=== PATIENT | female | born 1990 | race African-American/Black ===

== ENCOUNTER 2019-09-28 12:05 | Emergency (ER) | payer MEDICAID, SELFPAY ==
[2019-09-28 12:07] VITALS: BP 150/92; PULSE 111; RESP 20; TEMP 36.7; O2SAT 100; BMI 18.3
--- NOTE | 2019-09-28 12:22 | EKG12_ITS ---
Test Reason : SOB Blood Pressure : / mmHG Vent. Rate : 088 BPM Atrial Rate : 088 BPM P-R Int : 160 ms QRS Dur : 080 ms QT Int : 330 ms P-R-T Axes : 077 090 047 degrees QTc Int : 399 ms Normal sinus rhythm Normal ECG Confirmed by ALBERTO FOWLER ([id number]), video effects editor FRANCIS MAYO ([id number]) on 10/02/2019 2:00:02 PM Referred By: STEPHANIE Confirmed By:ALBERTO FOWLER
--- NOTE | 2019-09-28 12:24 | ED.VIS.GEN ---
History of Present Illness Chief Complaint: General Illness Informant: Patient Narrative: Patient is a 29-year-old previously healthy female who presents to the emerge department for diarrhea, fatigue and chest tightness. Her symptoms started earlier today. She states she has had 4 episodes of runny bowel movement. No associated nausea or vomiting. She does not know of any sick contacts. Has not been on any antibiotics recently. She denies any urinary symptoms. No cough, cold, congestion. Denies any sore throat or ear pain. She rates the chest tightness as mild. No real chest pain. No known aggravating or relieving factors. No radiation of the pain. No associated shortness of breath. No known exposures to anybody with coronavirus. She denies associated abdominal pain with her diarrhea. No leg swelling or calf pain. No history of DVT/PE. She denies any recent traveling. She has not had any fevers or chills. She states that she feels like she is dehydrated. Denies smoking, drinking or drug use. Only medication she takes is control. Past Medical History - Allergies and Home Meds Allergies/Adverse Reactions: Allergies No Known Allergies Allergy (Verified 09/28/19 12:09) Primary Care Physician: Poornima Gill DO [NON-STAFF] - 2 Days Care Physician,No Primary [Primary Care Provider] - Prior records reviewed: Yes Past Medical History: None Surgical History: no surgical history Smoking Status: Never smoker Alcohol: None Drugs: None Review of Systems All systems negative except as indicated General: Reports: - - Fatigue. Denies: Chills, Fever, Sweats Eyes: Denies: Visual changes - bilaterally, Diplopia ENT: Denies: Rhinorrhea, Sore throat Cardiovascular: Reports: Chest pain - Chest tightness. Denies: Palpitations Respiratory: Denies: Dyspnea, Cough, Dyspnea on exertion Gastrointestinal: Reports: Diarrhea. Denies: Abdominal pain, Nausea, Vomiting, Melena, Hematochezia Genitourinary: Denies: Dysuria, Hematuria, Frequency Musculoskeletal: Denies: Back pain, Extremity Pain Skin: Denies: Rash, Wounds Neurological: Denies: Headache, Weakness, Numbness Physical Exam Vital Signs/Narrative: Vital Signs Temp Pulse Resp BP Pulse Ox 09/28/19 12:07 98.1 F 111 H 20 H 150/92 H 100 Inital Vital Signs reviewed: Yes General: Well nourished, Well developed, No Acute Distress Head: Normocephalic, Atraumatic Eyes: Perrl, EOMI ENT: Moist mucous membranes, No rhinorrhea Neck: Supple, Nontender Cardiovascular: Regular rate, Regular rhythm, No murmurs, Tachycardia Respiratory: No distress, CTA bilaterally, Chest nontender Abdomen: Soft, Nontender, Nondistended, Normal bowel sounds Rectal: Deferred Back: Nontender, Normal Inspection Extremities: Nontender, No edema Skin: Normal color, No rash Neurological: Alert, Oriented x3, Cranial nerves II-XII grossly intact, Normal Strength, Normal Sensation Psychological: Normal affect, Normal Mood Diagnostic/Tx/Re-eval Chest X-Ray - ED: 1 View - Chest x-ray did not show any area of consolidation. No pneumothorax. No pleural effusions present. No widened mediastinum. No acute process noted. - Rhythm Strip Rhythm Strip: Sinus Rhythm - Rate of 88 bpm in sinus rhythm. Normal intervals. Normal axis. No ST elevations or depressions appreciated. No T wave abnormalities. No prior EKG for comparison. - Medical Decision Making Patient presents to the emerge department for diarrhea, fatigue and chest tightness. Upon arrival to the emerge department she is mildly tachycardic but otherwise normal vital signs. Satting well on room air. Given her reason for dehydration will start IV fluids. Will check basic lab work and coronavirus test. Otherwise physical exam is benign. Patient's lab work-up did not reveal any significant acute abnormality. Urinalysis was negative for infection. Urine was negative as well. EKG, chest x-ray negative for acute abnormality. Troponin d-dimer test within normal limits. She did not have any episodes of diarrhea throughout ED stay. On repeat exam prior to discharge patient still does not have any abdominal pain. Heart rate did come down to the low 90s with the IV fluids. She does feel comfortable going home at this time. She does not have a PCP and will be given a referral for 1. Warning signs and symptoms for which to return to the emergency department were reviewed with her including developing any abdominal pain or fever/chills. The coronavirus test is currently pending and she is to self isolate until this results. She understands and is agreeable with this plan. ED Disposition - Plan for ED Patient: Disposition: Home or Assisted Living Diagnosis: Diarrhea Instructions: ED Diet for Vomiting or Diarrhea Adult Referrals: Care Physician,[place] Primary [Primary Care Provider] - Fast,Poornima, DO [NON-STAFF] - 2 Days
--- NOTE | 2019-09-28 12:25 | NURSING ---
NO OLD EKGS
[2019-09-28] MEDS: 0.9% Normal Saline 1,000 ML 999 ML IV (12:50)
[2019-09-28 13:03] LABS: Bacteria 0 SEEN /hpf (None Seen); Mucous, Urine 0 SEEN /hpf (<or=2+); Red Blood Cells-Urine 0 SEEN /hpf (0-5)
[2019-09-28 13:11] LABS: Absolute Lymphocyte Count 2.33 X10^3/uL (0.83-4.51); Absolute Neutrophil Count 4.5 X10^3/uL (2.0-7.7); Basophil# 0.03 X10^3/uL; Basophil% 0.4 % (0-1); Eosinophil# 0.09 X10^3/uL; Eosinophils% 1.2 % (0-5); Hematocrit 38.3 % (37-47); Lymphocyte # 2.33 X10^3/ul (4.0); Lymphocyte % 31.4 % (19-41); Mean Corp Hgb Conc 31.3 g/dL (32-36); Mean Corpuscular Hgb 27.4 pg (27.0-32.0); Mean Corpuscular Volume 87.4 fL (81-99); Mean Platelet Vol. 9.7 fl (6.2-12.0); Monocyte# 0.49 X10^3/uL; Monocyte% 6.6 % (0-10); NRBC Flagged by Analyzer 0 % (0-5); Neutrophil # 4.46 X10^3/uL (2.7-7.7); Neutrophil % 60.1 % (47-70); Platelet Count 356 K/mm3 (150-450); RBC Distribution Width CV 12.3 % (11.6-14.6); RBC Distribution Width SD 39.5 fl (35.1-43.9); Red Blood Count 4.38 M/mm3 (4.2-5.4); White Blood Count 7.4 K/mm3 (4.4-11.0)
--- NOTE | 2019-09-28 13:15 | RAD_ITS ---
STUDY: X-RAY CHEST REASON FOR EXAM: Female, 29 years old. cough, fatigue, chest tightness, diarrhea TECHNIQUE: Single AP portable view of the chest. COMPARISON: None. FINDINGS: EKG leads overlie the chest The lungs are clear and expanded. There is no demonstrated pleural abnormality. Normal size heart. Normal mediastinum and altaf. Normal visualized pulmonary arteries. Normal visualized aortic arch and descending thoracic aorta. Normal visualized thoracic spine. Normal visualized ribs, clavicles, and shoulders. There is no demonstrated abnormality of the visualized soft tissue structures of the upper abdomen. RAD/Chest 1 View (Portable) IMPRESSION: Normal x-ray examination of the chest. Electronically Signed: Wilner Hope MD at 13:38 EDT , Service support ,
[2019-09-28 13:16] LABS: Color, Urine Straw (Yellow); Glucose, Dipstick Normal (Normal); Ketone-Dipstick Negative (Negative); Leukocyte Esterase-Dipstick Negative /ul (Negative); Nitrite-Dipstick Negative (Negative); Occult Blood-Urine Negative /ul (Negative); Protein-Dipstick Negative (Negative); Urine Bilirubin Dipstick Negative (Negative); Urine Clarity Clear (Clear); Urine Urobilinogen Normal (Normal)
[2019-09-28 13:21] LABS: Internal QC Validated? YES +Cl - CLEAR BKGD; Pregnancy, Urine Negative Negative
[2019-09-28 13:26] LABS: Squamous Epithelial Cells - UA 0-5 SEEN /hpf (5-10); White Blood Cells 0-5 SEEN /hpf (0-5)
[2019-09-28 13:29] LABS: Anion Gap 6 (5-15); BUN 7 mg/dL (7-18); Calcium,Total 8.8 mg/dL (8.5-10.1); Chloride 106 mmol/L (98-107); Creatinine, Serum 0.78 mg/dL (0.55-1.02); EST Glomerular Filtration Rate 93 mL/min (>60); Est Glom Filt Rate - Afr Amer 113 mL/min (>60); Estimated Creatinine Clearance 87.47 ml/min; Glucose 75 mg/dL (74-106); Potassium 3.6 mmol/L (3.5-5.1); Sodium Level 139 mmol/L (136-145)
[2019-09-28 13:39] LABS: D-Dimer Quantitative (DVT/PE) <= 0.27 FEU/ug/m (0.27-0.49)
[2019-09-28 14:36] VITALS: BP 154/90; PULSE 88; RESP 16; O2SAT 97
== END 2019-09-28 14:38 | disposition home or self-care (01) ==
PROVIDERS: Emergency Provider Emergency Medicine
DX: R19.7 Diarrhea, unspecified (principal); E86.0 Dehydration; R07.89 Other chest pain; R53.83 Other fatigue; R00.0 Tachycardia, unspecified; Z79.3 Long term (current) use of hormonal contraceptives
CPT/HCPCS: 71045; 80048; 81001; 81025; 84484; 85025; 85379; 87635; 93005; 96360; 96361; 99284; G2023; J7030; A4216; U0003

== ENCOUNTER 2020-02-02 12:28 | Emergency (ER) | payer MEDICAID, SELFPAY ==
[2020-02-02 12:33] VITALS: BP 155/92; PULSE 118; RESP 17; TEMP 37.3; O2SAT 100; BMI 18.6
[2020-02-02 14:19] VITALS: BP 139/93; PULSE 108; RESP 16; O2SAT 100
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
== END 2020-02-02 16:05 | disposition home or self-care (01) ==
PROVIDERS: Emergency Provider Emergency Medicine; PCP Family Medicine
DX: S00.03XA Contusion of scalp, initial encounter (principal); V89.2XXA Person injured in unspecified motor-vehicle accident, traffic, initial encounter; Y93.9 Activity, unspecified; Y92.9 Unspecified place or not applicable; Y99.9 Unspecified external cause status
CPT/HCPCS: 70450; 99282

== ENCOUNTER 2023-09-01 07:23 | Emergency (ER) | payer MEDICAID, SELFPAY ==
[2023-09-01 07:24] VITALS: BP 162/109; PULSE 110; RESP 18; TEMP 36.4; O2SAT 98; BMI 18.6
--- NOTE | 2023-09-01 07:37 | EDS_ITS ---
HPI History of Present Illness Chief Complaint: Lower Extremity Injury Detail of Chief Complaint: Left ankle injury Informant: patient Onset/Context/Timing Onset: Today Narrative Narrative: Patient presents secondary to left ankle pain. She was walking down some steps this morning when she rolled her left ankle. She states she heard some popping. She was able to walk with a limp after her injury. When she went to work she was noticing sharp pain in her ankle and came to have it evaluated. No other injury. She has not yet taken anything for pain. PFSH PFSH Medical History no medical history no medical history Home Medications ?Medication ?Instructions ?Recorded ?Last Taken ?Type desogestrel 0.15 mg-ethinyl 1 ea PO DAILY 09/28/19 Unknown History estradiol 0.03 mg tablet Allergy/AdvReac Type Severity Reaction Status Date / Time No Known Allergies Allergy Verified 09/01/23 07:24 Social History Smoking Status: Never smoker ROS ROS ED Constitutional Constitutional ED: Denies chills or fever(s) Cardiovascular Cardiovascular: Denies chest pain Respiratory/Chest Respiratory/Chest: Denies dyspnea Gastrointestinal Gastrointestinal: Denies abdominal pain, nausea or vomiting Musculoskeletal Musculoskeletal: Denies back pain or extremity pain Integumentary Denies Abrasions or rash Neurologic Neurologic: Denies paresthesias or weakness Allergic/Immunologic Allergic/Immunologic ED: Denies lip swelling or urticaria EXAM Physical Exam Const Vital Signs: 09/01/23 07:24 Temperature 97.6 F L Temperature Source Temporal Pulse Rate 110 H Respiratory Rate 18 Blood Pressure 162/109 H Blood Pressure Mean 126 Pulse Ox 98 Oxygen Delivery Method Room Air Positive well nourished and well developed General Appearance ED: well developed HEENT Reports moist mucous membranes Chest Wall inspection of chest normal and palpation of chest normal Resp normal respiratory effort and clear to auscultation bilaterally Cardio regular rate and regular rhythm GI non-tender Extremity Extremity Narrative: Mild tender palpation on the lateral malleolus of the left ankle. No significant edema. No erythema or ecchymosis. No tenderness over the knee or proximal fibula. Good distal pulses. Full range of motion. Neuro oriented x3, moves all extremities and no sensory deficits noted Motor Exam: strength 5/5 throughout Psych mental status grossly normal Skin Lesions: no lesions Rashes: no rashes MDM MDM MDM Narrative Medical decision making narrative: Ice pack applied to the left ankle. Patient given ibuprofen for pain. Left ankle x-ray obtained to evaluate for potential fracture. Differential diagnosis includes sprain, strain, contusion. Treatment and Re-Evaluation Narrative: Left ankle x-ray per my interpretation is no evidence of fracture. Test results discussed with the patient. She be placed in an air stirrup splint may weight- bear as tolerated. She will be referred to orthopedics for follow-up if not improving. I will write her off work today and we discussed using Tylenol, ibuprofen, ice, and elevation. Discharge Plan Triage Chief Complaint: Lower Extremity Injury ED Provider: Mandy Bob Dx/Rx/DC Orders Clinical Impression: Left ankle sprain Instructions: ED Ankle Sprain (Adult) Prescriptions: No Action desogestrel-ethinyl estradiol 1 EACH tablet 1 ea PO DAILY Stand Alone Forms: ED Work / School Excuse Primary Care Provider: Meghana Amador Referrals: Domenico Giraldo MD [Med Staff - Active Staff] - 10-14 Days if not better José Cobian MD [Non-Staff] - Print Language: Portuguese Disposition Disposition: Home, Self Care
--- NOTE | 2023-09-01 07:40 | RAD_ITS ---
STUDY: X-RAY - LEFT ANKLE REASON FOR EXAM: Female, 33 years old. Lateral ankle pain following injury. TECHNIQUE: 3 view(s) of the ankle. COMPARISON: None. FINDINGS: Normal visualized distal tibia and fibula. Normal medial and lateral malleoli. Normal tibiotalar articulation and ankle mortise. Normal visualized talus and calcaneus. The visualized subtalar, talonavicular, calcaneocuboid and tarsal articulations are normal. The soft tissue structures are unremarkable. RAD/Ankle min 3 Views IMPRESSION: Normal x-ray examination of the ankle. Electronically Signed: Robert Samuel MD at 8:02 EDT ,
[2023-09-01] MEDS: Ibuprofen 200 MG Tablet 400 MG PO (07:42)
== END 2023-09-01 08:02 | disposition home or self-care (01) ==
PROVIDERS: Emergency Provider Emergency Medicine; PCP Internal Medicine; Visit Provider Emergency Medicine
DX: S93.402A Sprain of unspecified ligament of left ankle, initial encounter (principal); X50.1XXA Overexertion from prolonged static or awkward postures, initial encounter
CPT/HCPCS: 73610; 99282